=== PATIENT | female | born 1970 | race Asian ===

== ENCOUNTER 2020-09-21 15:09 | Emergency (ER) | payer OTHER ==
[~2020-09-21] VITALS: Ht 154.9 cm; Wt 48.5 kg
[2020-09-21 15:39] VITALS: Ht 154.9 cm; Wt 48.5 kg
[2020-09-21 16:48] LABS: BASOPHIL % 0.5 % (0.2-1.3); PLATELET COUNT 235 x10^3mcL (179-408); RED CELL DISTRIBUTION WIDTH 13.3 % (12.3-17.7)
[2020-09-21 18:36] VITALS: BP 125/75
== END 2020-09-21 18:36 | disposition home or self-care (01) ==
LOC: ED 15:09
PROVIDERS: Student in an Organized Health Care Education/Training Program
DX: N93.8 Other specified abnormal uterine and vaginal bleeding (principal); D25.9 Leiomyoma of uterus, unspecified; I10 Essential (primary) hypertension